=== PATIENT | male | born 1980 | race Caucasian/White ===

== ENCOUNTER 2017-03-06 15:25 | Outpatient (CLI) | payer OTHER ==
[2017-03-06 15:46] LABS: BASOPHILS % 0.7 (0.0-1.5); EOSINOPHILS % 3.7 % (0.0-6.8); MEAN CORPUSCULAR HEMOGLOBIN 32.5 pg (28.0-34.0); MEAN CORPUSCULAR VOLUME 88.8 fl (80.0-100.0); MONOCYTES % 5.4 % (0.0-11.0); NEUTROPHILS # 4.3 # k/uL (1.4-7.7)
[2017-03-06 16:11] LABS: eGFR (African) > 60; eGFR (Non-African) > 60
[2017-03-07 00:02] LABS: LIPASE 55 U/L (13-60)
== END 2017-03-06 15:26 ==
LOC: LAB 15:25
PROVIDERS: ATTEND Physician Assistant
DX: R10.9 Unspecified abdominal pain (principal)
CPT/HCPCS: 36415; 80053; 82150; 83690; 85025